=== PATIENT | female | born 1955 | race Two or more races ===

== ENCOUNTER 2018-10-02 11:54 | Emergency (ER) | payer OTHER ==
[2018-10-02 12:03] VITALS: BP 135/76; PULSE 80; TEMP 98.1; BMI 26.2
--- NOTE | 2018-10-02 12:59 | PDOC ---
History of Present Illness - General Chief Complaint: Pain Stated Complaint: HEADACHE SORE THROAT Time Seen by Provider: 10/02/18 12:40 - History of Present Illness Initial Comments: 10/02/18 12:54 63-year-old female without comorbidities presents for evaluation of neck pain and back pain. She has no exacerbating or relieving factors no other associated symptoms her pain is worse with movement Past History - Past Medical History Allergies/Adverse Reactions: Allergies Allergy/AdvReac Type Severity Reaction Status Date / Time aspirin Allergy Verified 10/02/18 11:58 Home Medications: Ambulatory Orders Amlodipine Besylate [Norvasc -] 5 mg PO DAILY 10/02/18 Loratadine [Claritin -] 10 mg PO DAILY 10/02/18 Losartan Potassium [Cozaar -] 50 mg PO DAILY 10/02/18 - Suicide/Smoking/Psychosocial Hx Smoking History: Unknown if ever smoked Review of Systems - Review of Systems Constitutional: No: Chills, Diaphoresis, Fever, Malaise, Night Sweats Respiratory: No: Cough, Shortness of Breath Cardiac (ROS): No: Chest Pain : No: Dysuria Musculoskeletal: Yes: Back Pain, Neck Pain *Physical Exam - Vital Signs Last Vital Signs Temp Pulse Resp BP Pulse Ox 98.1 F 80 18 135/76 98 10/02/18 12:01 10/02/18 12:01 10/02/18 12:01 10/02/18 12:01 10/02/18 12:01 - Physical Exam Comments: 10/02/18 12:56 HEAD: NC/AT EYES: Conjuntiva clear Ears: Canals and TM's normal NOSE: No d/c THROAT: Moist mucous membrances, oral pharanx clear, uvula midline NECK: Supple without adenopathy CARDIAC: S1 S2 LUNGS: CTA Full and Equal breath sounds ABDOMEN: Soft NT ND no CVAT MS: Full ROM in all joints without edema mild R sided thoraco musculature tenderness. no UE or LE deficits 5/5 strength B LE and UE NEUROLOGIC: No gross sensory or motor deficits, NVID SKIN: Normal color and temperature no lesions or rashes 10/02/18 13:00 Medical Decision Making - Medical Decision Making 10/02/18 12:59 1 day of symptoms. Patient's back pain is reproduced with palpation along the thoracico musculature. She has no CVA tenderness. Abdominal exam is benign. No gross sensorimotor deficits. This pain is musculoskeletal. No recent travel 10/02/18 13:06 *DC/Admit/Observation/Transfer Diagnosis at time of Disposition: Strain of fascia at thorax level - Discharge Dispostion Disposition: HOME Condition at time of disposition: Stable Decision to Admit order: No - Referrals Referrals: Griffin Bob MD [Primary Care Provider] - - Patient Instructions Printed Discharge Instructions: Muscle Strain Additional Instructions: Return to the emergency room should symptoms worsen or go unresolved. Please follow-up with the primary care doctor at recommended for you may take Tylenol and Motrin as directed for pain you should follow up with primary care doctor in one to 2 days. Print Language: FRISIAN - Post Discharge Activity
[2018-10-02] MEDS ORDERED: ACETAMINOPHEN 500 MG TABLET (FP) PO ONE (13:14)
[2018-10-02] MEDS ORDERED: ACETAMINOPHEN 500 MG TABLET (FP) ONE (13:16)
== END 2018-10-02 13:22 | disposition home or self-care (01) ==
LOC: JERFT 11:54
DX: S29.012A Strain of muscle and tendon of back wall of thorax, initial encounter (principal); X58.XXXA Exposure to other specified factors, initial encounter; Y93.89 Activity, other specified; Y92.038 Other place in apartment as the place of occurrence of the external cause; Y99.8 Other external cause status
CPT/HCPCS: 99281-25